=== PATIENT | female | born 1990 | race Caucasian/White ===

== ENCOUNTER 2021-07-06 11:00 | Outpatient (CLI) | payer BC ==
[2021-07-06 11:58] LABS: Creatinine,Urine Random 127.7 mg/dL
[2021-07-06 12:04] LABS: Appearance,Urine Clear (Clear); Bacteria,Urine Rare /hpf; Bilirubin,Urine Negative (Negative); Blood,Urine Negative (Negative); Color,Urine Yellow; Glucose,Urine (UA) Negative (Negative); Ketones,Urine Negative (Negative); Leukocyte Esterase,Urine Moderate (Negative); Mucus,Urine Moderate /hpf; Nitrite,Urine Negative (Negative); PH, Urine 6.5 (5.0-8.0); Protein,Urine Negative (Negative); RBC,Urine 1 /hpf (0-5); Specific Gravity,Urine 1.016 (1.001-1.035); Squamous Epithelial Cell,Urine 1 /hpf (0-4); Urobilinogen,Urine <2.0 mg/dL (<2.0); WBC,Urine 4 /hpf (0-5)
[2021-07-06 12:29] LABS: Basophils # (A) 0.1 k/uL (0-0.2); Basophils % (A) 1 %; Eosinophils # (A) 0.1 k/uL (0-0.7); Eosinophils % (A) 1 %; HCT 38.3 % (34.0-46.0); HGB 12.2 gm/dL (11.4-16.0); Lymphocytes # (A) 2.4 k/uL (1.0-4.8); Lymphocytes % (A) 21 %; MCH 30.1 pg (25.0-35.0); MCHC 31.8 g/dL (31.0-37.0); MCV 94.7 fL (80.0-100.0); Mean Platelet Volume 8.1; Monocytes # (A) 0.5 k/uL (0-1.0); Monocytes % (A) 4 %; Neutrophils # (A) 8.5 k/uL (1.3-7.7); Neutrophils % (A) 73 %; Platelet Count 272 k/uL (150-450); RBC 4.05 m/uL (3.80-5.40); WBC 11.7 k/uL (3.8-10.6)
[2021-07-06 12:55] LABS: ALT 12 U/L (4-34); AST 20 U/L (14-36); African American GFR (CKD) >90 (>60 ml/min/1.73 sqM); Blood Urea Nitrogen 5 mg/dL (7-17); LDH 348 U/L (313-618); Non-African American GFR(CKD) >90 (>60 ml/min/1.73 sqM); Uric Acid 4.4 mg/dL (3.7-7.4)
[2021-07-06 14:17] VITALS: BP 123/84; PULSE 103; RESP 17
--- NOTE | 2021-07-06 16:14 | P.MSEPDOC ---
Presenting Problems - Arrival Data Date of Arrival on Unit: 07/06/21 Time of Arrival on Unit: 11:00 Mode of Transport: Ambulatory - Complaint OB-Reason for Admission/Chief Complaint: PIH Comment: pt presents to triage with written orders from Dr. Cordova for [facility] workup due to elevated bp's in the office Medical History - Information : 1 Para: 0 Term: 0 : 0 Abortions: Spontaneous or Elective: 0 Number of Living Children: 0 - Gestational Age Gestational Age by BEENA (wks/days): 37 Weeks and 3 Days Review of Systems - Review of Systems Constitutional: No problems Breast: No problems ENT: No problems Cardiovascular: No problems Respiratory: No problems Gastrointestinal: No problems Genitourinary: No problems Musculoskeletal: No problems Neurological: No problems Skin: No problems Vital Signs - Pulse Right Brachial Pulse Rate: 103 Pulse Assessment Method: Automatic Cuff - Respirations Respiratory Rate: 17 Oxygen Delivery Method: Room Air O2 Sat by Pulse Oximetry: 98 - Blood Pressure Right Arm Blood Pressure: 123/84 Blood Pressure Mean: 97 Blood Pressure Source: Automatic Cuff Medical Screen Scoring - Assessment - Baby A Baseline FHR: 140 Heart Rate - NICHD Category: Category I (Normal) NST: Reactive Physician Notification - Physician Notified Physician Notified Date: 07/06/21 Physician Notified Time: 11:46 Physician: Baljit Cordova New Order Received: Yes - Notification Comment Comment: reactive nst, pt's BP's wnl's, labs all normal, orders to discharge pt home, Maternal Triage Index - Maternal Triage Index Presenting for scheduled procedure w/no complaint: Yes - Stat/Priority 1 Stat Priority 1: No - Urgent/Priority 2 Urgent Priority 2: No - Prompt/Priority 3 Prompt Priority 3: No - Non-Urgent/Priority 4 Non-Urgent Priority 4: No - Scheduled/Requesting Priority 5 Scheduled/Requesting Priority 5: Yes Criteria Met for Priority 5: pt has written orders from Dr. Cordova for [facility] workup Disposition - Disposition OB Disposition: Triage, Discharge to home, Written follow up instructions reviewed Discharge Date: 07/06/21 Discharge Time: 13:10 I agree with the RN Medical Screening Exam: Yes Case reviewed; plan agreed upon as documented in EMR&OBIX.: Yes Diagnosis: GESTATIONAL HTN W/O SIGNIFICANT PROTEINURIA, THIRD TRIMESTER (Blood pressures are normal and pre-eclampsia labs are normal. Discharge home to f/u [facility].)
== END 2021-07-06 13:10 | disposition home or self-care (01) ==
LOC: FBPOP 11:00
PROVIDERS: ATTEND Obstetrics & Gynecology
DX: O13.3 Gestational [pregnancy-induced] hypertension without significant proteinuria, third trimester (principal); Z3A.37 37 weeks gestation of pregnancy; Z88.2 Allergy status to sulfonamides
CPT/HCPCS: 59025; 81001; 82565; 82570; 83615; 84156; 84450; 84460; 84520; 84550; 85025

== ENCOUNTER 2021-07-24 05:50 | Inpatient (IN) | payer BC ==
--- NOTE | 2021-07-23 12:43 | P.HPOB ---
History of Present Illness H&P Date: 07/23/21 Chief Complaint: Requested induction of labor This patient is a pleasant 30-year-old 1 para 0 female estimated date of confinement 07/24/2021 estimated gestational age 40-0/7 weeks who presents to labor and delivery for requested induction of labor. Patient's care has been complicated by diagnosis of bilateral clubfeet. This was first noted at approximately 19 weeks and patient was sent to maternal- medicine and confirmed the diagnoses. There are no other defects noted. Patient now presents for delivery. Review of Systems Genitourinary: Reports Menstruation: Reports amenorrhea Past Medical History Additional Past Medical History / Comment(s): Patient did have loss of part of her 1 finger due to a dog bite. Additional Past Surgical History / Comment(s): Hand surgery Past Psychological History: No Psychological Hx Reported Smoking Status: Never smoker Past Alcohol Use History: None Reported Past Drug Use History: None Reported Medications and Allergies Allergies Allergy/AdvReac Type Severity Reaction Status Date / Time Sulfa (Sulfonamide Allergy Rash/Hives Verified 07/06/21 11:20 Antibiotics) Exam - OBG Physical Exam Abdomen: bowel sounds normal, no diffuse tenderness, no bruit present, no guarding noted, no hepatomegaly, no splenomegaly, no mass Vulva: both: normal Vagina: normal moisture, no discharge Cervix: no lesion (Cervix in the office was 2 simmers dilated 50% effaced -2 s tation.), no discharge Uterus: enlarged (Fundal height was 38 cm) Results labs show she is A+, rubella immune, RPR nonreactive, hepatitis B is negative, HIV is nonreactive, Glucola was normal, group B strep was negative, most recent growth ultrasound showed the baby to be 5 lbs. 11 oz. at 35 weeks. Assessment and Plan Assessment: This is a pleasant 30-year-old 1 para 0 female 40-0/7 weeks gestation admitted to labor and delivery for requested induction of labor. Patient has known bilateral clubfeet. No other anomalies are noted. Plan is induction of labor and anticipate vaginal delivery. (1) 40 weeks gestation of Status: Acute Code(s): Z3A.40 - 40 WEEKS GESTATION OF SNOMED Code(s): 16730420 (2) Elective induction of labor planned Status: Acute Code(s): OVQ5398 - SNOMED Code(s): 144454851 (3) Club foot of fetus Status: Acute Code(s): UBT3425 - SNOMED Code(s): 17580197594662
[2021-07-24] MEDS ORDERED: LIDOCAINE 1% (PF) 10 MG/ML (30 ML SDV) SQ PRN (06:02)
[2021-07-24] MEDS ORDERED: OXYTOCIN 30 UNITS/500 ML NS 30 UNIT in SALINE 1 500ML.BAG IV SCH ×2 (06:02→13:12)
[2021-07-24] MEDS ORDERED: METHYLERGONOVINE 0.2 MG/ML 1 ML AMP IM PRN (06:02)
[2021-07-24] MEDS ORDERED: CARBOPROST TROMETHAMINE 250 MCG/ML 1 ML AMP IM PRN (06:02)
[2021-07-24] MEDS ORDERED: TERBUTALINE 1 MG/ML VIAL SQ PRN (06:02)
[2021-07-24] MEDS ORDERED: OXYTOCIN 10 UNIT/ML 1 ML VIAL IM PRN (06:02)
[2021-07-24 06:24] LABS: Basophils # (A) 0.1 k/uL (0-0.2); Basophils % (A) 1 %; Eosinophils # (A) 0.1 k/uL (0-0.7); Eosinophils % (A) 1 %; HGB 13.2 gm/dL (11.4-16.0); Lymphocytes # (A) 2.8 k/uL (1.0-4.8); Lymphocytes % (A) 26 %; MCHC 32.9 g/dL (31.0-37.0); MCV 91.2 fL (80.0-100.0); Mean Platelet Volume 7.8; Monocytes # (A) 0.5 k/uL (0-1.0); Monocytes % (A) 5 %; Neutrophils # (A) 7.4 k/uL (1.3-7.7); Neutrophils % (A) 67 %; Platelet Count 275 k/uL (150-450); RBC 4.38 m/uL (3.80-5.40); WBC 11.1 k/uL (3.8-10.6)
[2021-07-24] MEDS: LACTATED RINGERS 1,000 ML IV SCH ×3 (06:24→09:00)
[2021-07-24] MEDS ORDERED: ROPIVACAINE 100 MG, fentaNYL (PF). 200 MCG in SODIUM CHLORIDE 0.9% 76 ML EPIDURAL ONE (12:54)
[2021-07-24] MEDS ORDERED: diphenhydrAMINE 50 MG/ML 1 ML VIAL IVP PRN (13:12)
[2021-07-24] MEDS ORDERED: HYDROCORTISONE 2.5% RECTAL CREAM 30 GM TUBE RECTAL PRN (13:12)
[2021-07-24] MEDS ORDERED: bisacodyL 10 MG SUPP RECTAL PRN (13:12)
[2021-07-24] MEDS ORDERED: ACETAMINOPHEN TAB 325 MG TAB PO PRN (13:12)
[2021-07-24] MEDS ORDERED: SIMETHICONE 80 MG CHEWABLE PO PRN (13:12)
[2021-07-24] MEDS ORDERED: ZOLPIDEM 5 MG TAB PO PRN (13:12)
[2021-07-24] MEDS ORDERED: BENZOCAINE/MENTHOL SPRAY 1 GM/SPRAY AEROSOL TOPICAL PRN (13:12)
[2021-07-24] MEDS ORDERED: diphenhydrAMINE 25 MG CAP PO PRN (13:12)
[2021-07-24] MEDS ORDERED: LANOLIN CREAM 5 GM TUBE TOPICAL PRN (13:12)
--- NOTE | 2021-07-24 13:13 | P.PROBDLV ---
Vaginal Delivery Note - . Vaginal Delivery Note: Normal vaginal delivery viable female Apgars 9 and 9 delivery time is 1255 hrs. Please see dictated H&P for intimate details of this patient's admission. Brief summary is a pleasant 30-year-old 1 para 0 female estimated gestational age 40-0/7 weeks who presented to labor and delivery for induction of labor. Patient is admitted she's to 3 cm dilated artificial rupture membranes for clear fluid. Labor is induced with Pitocin per protocol. Labor does progress and she is quite uncomfortable gets an epidural for pain control. Patient is to complete pushes for approximately 60 minutes. Pushes the head to the perineum and the posterior perineum is supported. We have controlled delivery of the 's head over the intact perineum. Mouth and nares are bulb suctioned. 's head is straight occiput anterior presentation. With gentl e downward traction we then have deliver the anterior and posterior shoulder and rest this infant's body. This is a vigorous viable female infant Apgars are 9 and 9 delivery time is 1255 hrs. has spontaneous respiration and good cry. Infant does have bilateral clubfeet which was known prior to delivery. After delivery of the infant, the is laid on the mother's abdomen. After the cord is done pulsating is doubly clamped and cut. Does appear to be trivascular. The placenta is then spontaneously delivered intact. The perineum is inspected and there is a second-degree lacerations repaired with 3-0 Vicryl usual fashion. Excellent reapproximation is noted.'s May blood loss is approximately 100 mL. There are no complications and all counts are correct 3.
[2021-07-24] MEDS: IBUPROFEN 600 MG TAB PO PRN ×2 (13:39→23:36)
[2021-07-24] MEDS: SENNOSIDES-DOCUSATE SODIUM 1 EACH TAB PO SCH ×2 (16:32→20:20)
[2021-07-24 22:24] VITALS: RESP 16
--- NOTE | 2021-07-25 06:17 | P.PNOBGVD ---
Subjective - Subjective Patient reports: Reports appetite normal, Reports voiding normally, Reports pain well controlled, Reports ambulating normally : doing well Objective - Latest Vital Signs Latest vital signs: Vital Signs Temp Pulse Resp BP Pulse Ox 07/25/21 00:00 98.1 F 96 16 119/86 97 07/24/21 20:00 98.1 F 90 16 130/81 96 07/24/21 16:00 97.8 F 98 18 137/71 99 07/24/21 15:13 97.8 F 100 18 135/70 99 07/24/21 14:43 97.7 F 100 18 154/83 99 07/24/21 14:13 95 18 138/77 99 07/24/21 13:58 97.8 F 114 H 18 138/81 98 07/24/21 13:43 98.6 F 101 H 18 143/72 97 07/24/21 13:22 97.8 F 112 H 18 128/71 98 07/24/21 13:13 98.0 F 123 H 18 120/71 98 Intake and Output 07/24/21 07/24/21 07/25/21 14:59 22:59 06:59 Output Total 269 Balance -269 Output: Estimated Blood Loss 100 Output, Quantitative 169 Blood Loss Other: # Voids 1 2 - Exam Lungs: bilateral: normal Chest: Normal S1, Normal S2 Extremities: Present: normal Abdomen: Present: normal appearance, soft Uterus: Present: normal, firm - Labs Labs: Abnormal Lab Results - Last 24 Hours (Table) 07/24/21 Range/Units 06:05 WBC 11.1 H (3.8-10.6) k/uL Assessment and Plan Assessment: day #1. Patient is resting without complaints and wishes to go home. Vital signs are stable and she is afebrile. Uterus is firm nontender she's having normal lochia. My impression is a normal course. Plan is to continue routine care and discharge home later today (1) 40 weeks gestation of Current Visit: No Status: Acute Code(s): Z3A.40 - 40 WEEKS GESTATION OF SNOMED Code(s): 63032528 (2) Elective induction of labor planned Current Visit: No Status: Acute Code(s): UCV3571 - SNOMED Code(s): 045107478 (3) Club foot of fetus Current Visit: No Status: Acute Code(s): WEI3439 - SNOMED Code(s): 55412098986747
--- NOTE | 2021-07-25 06:22 | P.DS ---
Providers Date of admission: 07/24/21 05:50 Expected date of discharge: 07/25/21 Attending physician: Baljit Cordova Primary care physician: Stated None - Discharge Diagnosis(es) (1) 40 weeks gestation of Current Visit: No Status: Acute (2) Elective induction of labor planned Current Visit: No Status: Acute (3) Club foot of fetus Current Visit: No Status: Acute Hospital Course: Please see dictated H&P for intimate details of this patient's admission. Brief summary is a pleasant 30-year-old 1 para 0 female 40-0/7 weeks gestation who is admitted to labor and delivery for elective induction of labor. Patient's admitting quickly goes on to have a vaginal delivery viable female . Please see dictated delivery note. Of note the baby girl did have bilateral clubfeet which was known prior to delivery. day #1 patient wishes to go home was felt be stable for discharge home follow up with me in 6 weeks. Procedures: Induction of labor and normal vaginal delivery Patient Condition at Discharge: Good Plan - Discharge Summary New Discharge Prescriptions: New Ibuprofen [Motrin] 600 mg PO Q6HR PRN #30 tab PRN Reason: Pain No Action Levothyroxine Sodium [Synthroid] 25 mcg PO DAILY Pnv No.95/Ferrous Fum/Folic AC [ Multivitamin Tablet] 1 each PO DAILY Discharge Medication List Levothyroxine Sodium [Synthroid] 25 mcg PO DAILY 07/24/21 [History] Pnv No.95/Ferrous Fum/Folic AC [ Multivitamin Tablet] 1 each PO DAILY 07/24/21 [History] Ibuprofen [Motrin] 600 mg PO Q6HR PRN #30 tab 07/25/21 [Rx] Follow up Appointment(s)/Referral(s): Baljit Cordova MD [STAFF PHYSICIAN] - 09/11/21 11:15 am Patient Instructions/Handouts: Vaginal Delivery (DC) Activity/Diet/Wound Care/Special Instructions: No intercourse or anything per vagina for 6 weeks. Please call if any fever, chills, excessive vaginal bleeding, and/or abdominal pain. Discharge Disposition: HOME SELF-CARE
[2021-07-25 07:00] LABS: Basophils # (A) 0.1 k/uL (0-0.2); Basophils % (A) 1 %; Eosinophils # (A) 0.1 k/uL (0-0.7); Eosinophils % (A) 1 %; HCT 36.8 % (34.0-46.0); HGB 11.8 gm/dL (11.4-16.0); Lymphocytes # (A) 3.4 k/uL (1.0-4.8); Lymphocytes % (A) 22 %; MCH 30.2 pg (25.0-35.0); MCHC 32.1 g/dL (31.0-37.0); MCV 94.3 fL (80.0-100.0); Mean Platelet Volume 8.2; Monocytes # (A) 0.7 k/uL (0-1.0); Monocytes % (A) 5 %; Neutrophils # (A) 10.7 k/uL (1.3-7.7); Neutrophils % (A) 71 %; Platelet Count 238 k/uL (150-450); WBC 15.2 k/uL (3.8-10.6)
[2021-07-25] MEDS: SENNOSIDES-DOCUSATE SODIUM 1 EACH TAB PO SCH (07:48)
[2021-07-25] MEDS: IBUPROFEN 600 MG TAB PO PRN ×2 (07:48→14:44)
[2021-07-25 08:25] VITALS: BP 116/79; PULSE 87; TEMP 98
== END 2021-07-25 15:30 | disposition home or self-care (01) | DRG 807 ==
LOC: 4FBP 05:50
PROVIDERS: ADMIT Obstetrics & Gynecology; ATTEND Obstetrics & Gynecology
PROC: 10E0XZZ Delivery of Products of Conception, External Approach (ICD-10-PCS; principal; 2021-07-24)
PROC: 0KQM0ZZ Repair Perineum Muscle, Open Approach (ICD-10-PCS; 2021-07-24)
PROC: 3E033VJ Introduction of Other Hormone into Peripheral Vein, Percutaneous Approach (ICD-10-PCS; 2021-07-24)
PROC: 10907ZC Drainage of Amniotic Fluid, Therapeutic from Products of Conception, Via Natural or Artificial Opening (ICD-10-PCS; 2021-07-24)
DX: O35.8XX0 Maternal care for other (suspected) fetal abnormality and damage, not applicable or unspecified (principal); Z37.0 Single live birth; O70.1 Second degree perineal laceration during delivery; Z3A.40 40 weeks gestation of pregnancy; Z88.2 Allergy status to sulfonamides
CPT/HCPCS: 85025; 86850; 86900; 86901; 88307

== ENCOUNTER → 2023-12-29 | Outpatient (CLI) | payer BC ==
[2023-12-29 21:37] LABS: ALT 25 U/L (8-44); AST 21 U/L (13-35); Albumin 4.5 g/dL (3.8-4.9); Albumin/Globulin Ratio 1.55 Ratio (1.60-3.17); Alkaline Phosphatase 88 U/L (41-126); BUN/Creat Ratio 13.14 Ratio (12.00-20.00); Blood Urea Nitrogen 9.2 mg/dL (9.0-27.0); Calcium 9.4 mg/dL (8.7-10.3); Carbon Dioxide 24.7 mmol/L (21.6-31.8); Chloride 102 mmol/L (96-109); Globulin 2.9 g/dL (1.6-3.3); Glucose 91 mg/dL (70-110); Potassium 4.3 mmol/L (3.5-5.5); Sodium 137 mmol/L (135-145); Total Bilirubin 0.8 mg/dL (0.3-1.2); Total Protein 7.4 g/dL (6.2-8.2)
[2023-12-29 21:55] LABS: Basophils # (A) 0.07 X 10*3/uL (0.00-0.10); Basophils % (A) 0.9 %; Eosinophils # (A) 0.21 X 10*3/uL (0.04-0.35); Eosinophils % (A) 2.6 %; HCT 42.9 % (37.2-46.3); MCHC 32.6 g/dL (32.0-37.0); MCV 92.1 FL (80.0-97.0); Monocytes % (A) 6.3 %; NRBC Per 100 WBC 0 X 10*3/uL (0.00-0.01); Neutrophils # (A) 4.04 X 10*3/uL (1.80-7.70); Neutrophils % (A) 50.9 %; Platelet Count 366 X 10*3/uL (140-440); RBC 4.66 X 10*6/uL (4.10-5.20); RDW 12.1 % (11.5-14.5); WBC 7.94 X 10*3/uL (4.50-10.00)
== END | disposition home or self-care (01) ==
LOC: LABWHC1 15:57
PROVIDERS: ATTEND Nurse Practitioner Family
DX: R10.13 Epigastric pain (principal)
CPT/HCPCS: 36415; 80053; 85025